=== PATIENT | male | born 1935 | race Caucasian/White ===

== ENCOUNTER 2017-10-11 12:33 | Inpatient (IN) | payer OTHER, MEDICARE ==
[~2017-10-11] VITALS: Ht 185.4 cm; Wt 98.9 kg
--- NOTE | ~2017-10-11 | EKG ---
[address] [address] ELECTROCARDIOGRAM REPORT Name: MELY ARIAS Room #: 170-8 ADM IN M.R.#: [id number] Admission: 10/11/17 Attend Phys: Timothy Ross MD Discharge: Date of : 31 Report #: [id number] THIS REPORT FOR: //name// [facility] ED Test Date: 2017-10-11 Test Time: 13:29:42 Pat Name: MELY ARIAS Department: Room: 170 Gender: M Analyst Competitive Intelligence: MONALISA : 1935 Requested By: Ashanti Weaver Order Number: [id number] MD: Elkin Del Rio Measurements Intervals [place] Rate: 66 P: 12 AL: 225 QRS: 22 QRSD: 113 T: 11 QT: 389 QTc: 408 Interpretive Statements Sinus rhythm Prolonged AL interval Borderline intraventricular conduction delay No previous ECG available for comparison Electronically Signed On 10-11-2017 16:27:51 NUCLEAR ENGINEER by Elkin Del Rio [email or web address] <ELECTRONICALLY SIGNED> By: Elkin Del Rio MD, [facility] 10/11/17 1627 1329 [id number] Elkin Del Rio MD, FACC /EPI
[2017-10-11 13:15] VITALS: BP 95/63
[2017-10-11 13:20] LABS: ABSOLUTE NEUTROPHILS 14.1 thou/uL (1.4-8.2); BASOPHILS 0.3 % (0.0-2.0); EOSINOPHILS 2.4 % (0.0-3.0); HEMOGLOBIN 14.1 gm/dL (14.0-18.0); LYMPHOCYTES 4.5 % (24.0-44.0); MCH 32.1 pg (26.0-34.0); MCHC 33.6 g/dL (28.0-37.0); MCV 95.7 fL (80.0-100.0); PLATELET COUNT 163 thou/uL (150-400); POLYS 86.8 % (36.0-66.0); RBC 4.39 mil/uL (4.50-6.00); RDW 13.4 % (10.5-14.5); WBC 16.3 thou/uL (4.0-11.0)
[2017-10-11 13:32] LABS: CALCIUM 9.6 mg/dL (8.5-10.1); CREATININE 2.1 mg/dL (0.7-1.3); POTASSIUM 4.2 mmol/L (3.5-5.1)
[2017-10-11 13:40] LABS: ALBUMIN 3.1 g/dL (3.4-5.0); TOTAL BILIRUBIN 0.7 mg/dL (<0.1-1.0); TOTAL PROTEIN 6.1 g/dL (6.4-8.2); TROPONIN-I 0.07 ng/mL (<0.06)
[2017-10-11 14:29] LABS: URINE BILIRUBIN 1+ (Negative); URINE BLOOD NEGATIVE (Negative); URINE CLARITY CLEAR; URINE COLOR YELLOW; URINE GLUCOSE-RANDOM* NEGATIVE (Negative); URINE KETONES TRACE (Negative); URINE LEUKOCYTES NEGATIVE (Negative); URINE NITRITE NEGATIVE (Negative); URINE PROTEIN (DIPSTICK) TRACE (Negative); URINE SPECIFIC GRAVITY >= 1.030 (1.005-1.035); URINE UROBILINOGEN 0.2 E.U./dl (0.2-1.0)
[2017-10-11 14:34] LABS: ICTOTEST (BILI CONFIRMATORY) Negative (Negative)
[2017-10-11 17:04] VITALS: BP 101/63
[2017-10-11 18:02] VITALS: BP 105/52
[2017-10-11] MEDS ORDERED: UNICOMPLEX M TA1 TA1 PO (18:19)
[2017-10-11] MEDS ORDERED: PAROEX473 ML PO (18:24)
[2017-10-11 18:30] VITALS: BP 116/67
[2017-10-12 03:06] VITALS: BP 128/55
[2017-10-12 04:29] LABS: HEMATOCRIT 38.2 % (42.0-52.0); MCH 32.2 pg (26.0-34.0); MCV 94.8 fL (80.0-100.0); RBC 4.03 mil/uL (4.50-6.00); RDW 13.2 % (10.5-14.5); WBC 11.4 thou/uL (4.0-11.0)
[2017-10-12 04:39] LABS: CALCIUM 8.8 mg/dL (8.5-10.1); CREATININE 1.6 mg/dL (0.7-1.3); POTASSIUM 3.7 mmol/L (3.5-5.1)
[2017-10-12 07:30] VITALS: BP 120/62
[2017-10-12 15:52] VITALS: BP 138/56
[2017-10-12 19:27] VITALS: BP 139/74
[2017-10-13 04:06] LABS: ABSOLUTE NEUTROPHILS 4.9 thou/uL (1.4-8.2); BASOPHILS 0.4 % (0.0-2.0); EOSINOPHILS 6.9 % (0.0-3.0); HEMATOCRIT 37.4 % (42.0-52.0); HEMOGLOBIN 12.8 gm/dL (14.0-18.0); LYMPHOCYTES 19.3 % (24.0-44.0); MCH 32.1 pg (26.0-34.0); MCHC 34.1 g/dL (28.0-37.0); MCV 94.1 fL (80.0-100.0); MONOCYTES 9.3 % (1.0-8.0); PLATELET COUNT 158 thou/uL (150-400); POLYS 64.1 % (36.0-66.0); RBC 3.97 mil/uL (4.50-6.00); RDW 13.1 % (10.5-14.5); WBC 7.6 thou/uL (4.0-11.0)
[2017-10-13 04:15] LABS: CALCIUM 9.1 mg/dL (8.5-10.1); CREATININE 1.4 mg/dL (0.7-1.3); POTASSIUM 3.9 mmol/L (3.5-5.1)
[2017-10-13 04:38] VITALS: BP 132/72
[2017-10-13 08:00] VITALS: BP 119/65
[2017-10-13 16:00] VITALS: BP 131/71
[2017-10-13 19:49] VITALS: BP 135/77
[2017-10-14 05:29] LABS: CALCIUM 9.7 mg/dL (8.5-10.1); CREATININE 1.3 mg/dL (0.7-1.3)
[2017-10-14] MEDS ORDERED: AZITHROMYCIN 2250 MG PO (12:16)
[2017-10-14] MEDS ORDERED: CEFUROXIME500 MG PO (12:16)
[2017-10-14 12:43] VITALS: BP 135/77
== END 2017-10-14 15:48 | disposition home or self-care (01) | DRG 871 ==
LOC: ER 12:33 → 4E 14:49 → EROBS 14:49 → 4E 18:01 → ENTRNSPT 10-14 15:03 → EDTRNSPTSTS 10-14 15:06 → 4E 10-14 15:48
PROVIDERS: Hospitalist; Internal Medicine; Nurse Practitioner Family
DX: A41.9 Sepsis, unspecified organism (principal); N17.0 Acute kidney failure with tubular necrosis; G93.41 Metabolic encephalopathy; J18.1 Lobar pneumonia, unspecified organism; Z90.49 Acquired absence of other specified parts of digestive tract; Z79.899 Other long term (current) drug therapy; Z88.1 Allergy status to other antibiotic agents; Z86.718 Personal history of other venous thrombosis and embolism
CPT/HCPCS: 10084

== ENCOUNTER → 2017-10-22 | Outpatient (CLI) | payer OTHER, MEDICARE ==
[~2017-10-22] VITALS: Ht 182.9 cm; Wt 92.5 kg
[~2017-10-22] MED LIST: AZITHROMYCIN 2250 MG PO; CEFUROXIME500 MG PO; PAROEX473 ML PO; UNICOMPLEX M TA1 TA1 PO
[2017-10-22 13:41] VITALS: BP 148/85
[2017-10-25 12:34] LABS: ABSOLUTE NEUTROPHILS 4.3 thou/uL (1.4-8.2); BASOPHILS 0.8 % (0.0-2.0); EOSINOPHILS 1.2 % (0.0-3.0); HEMATOCRIT 44.4 % (42.0-52.0); HEMOGLOBIN 14.9 gm/dL (14.0-18.0); LYMPHOCYTES 29.1 % (24.0-44.0); MCHC 33.6 g/dL (28.0-37.0); MONOCYTES 7.1 % (1.0-8.0); PLATELET COUNT 294 thou/uL (150-400); POLYS 61.8 % (36.0-66.0); RBC 4.67 mil/uL (4.50-6.00); RDW 13.1 % (10.5-14.5); WBC 6.9 thou/uL (4.0-11.0)
[2017-10-25 12:55] LABS: ALBUMIN 3.5 g/dL (3.4-5.0); ANION GAP 11 mmol/L (7-16); BUN 26 mg/dL (7-18); CALCIUM 10.1 mg/dL (8.5-10.1); CHLORIDE 107 mmol/L (98-107); CHOLESTEROL 167 mg/dL (<200); CO2 22 mmol/L (21-32); CREATININE 1.4 mg/dL (0.7-1.3); GLUCOSE 82 mg/dL (74-106); HDL CHOLESTEROL 41 mg/dL (>40); LDL CHOLESTEROL 100 mg/dL (<100); MAGNESIUM 2.2 mg/dL (1.8-2.4); POTASSIUM 4.3 mmol/L (3.5-5.1); SGOT 22 U/L (15-37); SGPT 29 U/L (30-65); SODIUM 140 mmol/L (136-145); TC:HDL 4.1 Ratio (Not establshd); TOTAL BILIRUBIN 0.9 mg/dL (<0.1-1.0); TOTAL PROTEIN 6.9 g/dL (6.4-8.2); TRIGLYCERIDE 130 mg/dL (<150); VLDL 26 mg/dL (<40)
[2017-10-25 13:25] LABS: TSH 0.349 uIU/mL (0.358-3.740)
== END ==
LOC: SEN 13:03
PROVIDERS: Registered Nurse
DX: S37.009A Unspecified injury of unspecified kidney, initial encounter (principal); I10 Essential (primary) hypertension; J18.9 Pneumonia, unspecified organism; X58.XXXA Exposure to other specified factors, initial encounter; Y93.89 Activity, other specified; Y92.89 Other specified places as the place of occurrence of the external cause; Y99.8 Other external cause status

== ENCOUNTER → 2017-10-25 | Outpatient (CLI) | payer OTHER, MEDICARE | LOC: RAD 12:33 | DX: R05 Cough (principal) ==

== ENCOUNTER → 2017-10-29 | Outpatient (CLI) | payer OTHER, MEDICARE ==
[~2017-10-29] VITALS: Ht 185.4 cm; Wt 93.4 kg
[2017-10-29 10:13] VITALS: BP 151/83
== END ==
LOC: SEN 09:04
DX: J18.9 Pneumonia, unspecified organism (principal)

== ENCOUNTER 2018-12-22 16:24 | Inpatient (IN) | payer OTHER, MEDICARE ==
[~2018-12-22] VITALS: Ht 185.4 cm; Wt 95.0 kg
[2018-12-22 16:32] VITALS: BP 109/65
[2018-12-22 16:51] LABS: ABSOLUTE NEUTROPHILS 6.4 thou/uL (1.4-8.2); BASOPHILS 0.6 % (0.0-2.0); EOSINOPHILS 8.5 % (0.0-3.0); HEMATOCRIT 41.5 % (42.0-52.0); HEMOGLOBIN 14.2 gm/dL (14.0-18.0); LYMPHOCYTES 15.8 % (24.0-44.0); MCHC 34.3 g/dL (28.0-37.0); MCV 93.3 fL (80.0-100.0); MONOCYTES 10.3 % (1.0-8.0); PLATELET COUNT 217 thou/uL (150-400); POLYS 64.8 % (36.0-66.0); RBC 4.45 mil/uL (4.50-6.00); RDW 12.8 % (10.5-14.5); WBC 9.9 thou/uL (4.0-11.0)
[2018-12-22 16:56] LABS: CALCIUM 10.9 mg/dL (8.5-10.1); CREATININE 1.2 mg/dL (0.7-1.3); POTASSIUM 3.8 mmol/L (3.5-5.1)
[2018-12-22 17:02] LABS: ALBUMIN 3.2 g/dL (3.4-5.0); TOTAL BILIRUBIN 0.8 mg/dL (<0.1-1.0); TOTAL PROTEIN 6.6 g/dL (6.4-8.2)
[2018-12-22 18:27] LABS: URINE BILIRUBIN NEGATIVE (Negative); URINE BLOOD NEGATIVE (Negative); URINE CLARITY CLEAR; URINE COLOR YELLOW; URINE GLUCOSE-RANDOM* NEGATIVE (Negative); URINE KETONES TRACE (Negative); URINE LEUKOCYTES-REFLEX NEGATIVE (Negative); URINE NITRITE-REFLEX NEGATIVE (Negative); URINE PROTEIN (DIPSTICK) NEGATIVE (Negative); URINE SPECIFIC GRAVITY 1.025 (1.005-1.035); URINE UROBILINOGEN 0.2 E.U./dl (0.2-1.0)
[2018-12-22 19:38] LABS: MAGNESIUM 1.9 mg/dL (1.8-2.4); TROPONIN-I <0.06 ng/mL (<0.06)
[2018-12-22 21:59] VITALS: BP 132/63
[2018-12-22 22:16] VITALS: BP 138/67
[2018-12-23 02:49] LABS: ALBUMIN 2.7 g/dL (3.4-5.0); CALCIUM 9.4 mg/dL (8.5-10.1); CREATININE 1.1 mg/dL (0.7-1.3); POTASSIUM 3.6 mmol/L (3.5-5.1); TOTAL BILIRUBIN 0.7 mg/dL (<0.1-1.0); TOTAL PROTEIN 5.6 g/dL (6.4-8.2)
[2018-12-23 02:53] LABS: HEMATOCRIT 37.9 % (42.0-52.0); HEMOGLOBIN 12.8 gm/dL (14.0-18.0); MCH 31.5 pg (26.0-34.0); MCHC 33.8 g/dL (28.0-37.0); MCV 93.4 fL (80.0-100.0); RBC 4.06 mil/uL (4.50-6.00); RDW 13.1 % (10.5-14.5); WBC 8.8 thou/uL (4.0-11.0)
--- NOTE | 2018-12-23 02:53 | NUR ---
PT ARRIVED TO UNIT APPROX 2215 IN STABLE CONDITION, ABLE TO WALK SHORT DISTANCE FROM ER CART TO BED; ADMISSION COMPLETED AND CONSENTS SIGNED WITH HELP OF PT'S SON/DPLEEROY ANAYA. HÉCTOR ASKED THAT IF HE MISSES THE DOCTOR IN THE MORNING, THAT HE BE ABLE TO TALK WITH HIM ON THE PHONE ABOUT THE PLAN OF CARE. ASSESSMENT COMPLETED. PT IS A&O TO SELF, TIME, AND PARTLY TO SITUATION--INITIALLY THOUGHT HE WAS IN [place], BUT AFTER PROMPTING KNEW HE WAS IN THE HOSPITAL SOMEWHERE; HE REPEATEDLY SAID HE WAS IN [place] DURING OTHER QUESTIONS, OFTEN PROVIDING ANSWERS THAT DIDN'T FIT QUESTIONS, AND TRAILING OFF HIS THOUGHTS OR LOSING TRACK OF WHAT HE WAS SAYING. PLEASANT AND COOPERATIVE WITH ASSESSMENT, BUT STRUGGLED WITH ANSWERING QUESTIONS ABOUT PAIN, TROUBLE BREATHING, ETC. DENIED SOB BUT REPORTED BEING EASILY FATIGUED WITH ACTIVITY, LUNG SOUNDS COARSE, USES CPAP AT NOC, DESATS TO 88% OR LOWER ON RA WHILE ASLEEP; EVEN WITH CPAP ON HIS O2 SAT IS AROUND 90%. NO PAIN, REPORTS FEELING MILDLY NAUSEATED BUT DENIES NEED TO THROW UP. HAD TWO TEETH PULLED FIVE DAYS AGO, SON REPORTS HE IS NOT USING STRAWS AND ONLY EATING SOFT FOODS. NO SIGN OF BLEEDING IN HIS MOUTH, BUT HIS TONGUE HAS A WHITE COLOR TO IT. WIDESPREAD RASH ACROSS BODY, PT STATES HE DOES FEEL ITCHY FROM THIS; BLE ARE MORE DENSELY RED AND HOT COMPARED TO THE REST OF THE BODY WITH 1+ PITTING EDEMA WELL. IV FLUIDS STARTED, AND GIVEN WATER AND A CUP OF COFFEE. NO OTHER CONCERNS, WILL CONTINUE TO MONITOR.
[2018-12-23 04:48] VITALS: BP 138/66
[2018-12-23 07:10] VITALS: BP 129/61
--- NOTE | 2018-12-23 09:54 | 2DMMODE ---
[facility] [address] [place] [address] 2 D/M-MODE ECHOCARDIOGRAM Name: MELY ARIAS R[place] Room #: 430-P ADM IN M.R.#: [id number] ������������� Admission: 12/22/18 ������������� Attend Phys: Ko Carr, Discharge: ��� ������������� ��� Date of : 31 Date of Service: 12/23/18 0954 �� Report #: [id number] �������� ��������������������������������������������[id number] THIS REPORT FOR: //name// APPROVED REPORT Study performed: 12/23/2018 08:20:22 EXAM: Comprehensive 2D, Doppler, and color-flow Echocardiogram Patient Location: Echo lab Room #: 430 Status: routine BSA: 2.19 HR: 49 bpm BP: 129/61 mmHg Rhythm: Bradycardia Other Information Study Quality: Good Indications Weakness 2D Dimensions RVDd: 40.20 mm IVSd: 11.11 (7-11mm) LVOT Diam: 24.32 (18-24mm) LVDd: 49.02 mm PWd: 11.31 (7-11mm) Ascending Ao: 43.88 (22-36mm) LVDs: 32.43 (25-40mm) Aortic Root: 37.77 mm IVC: 27.00 mm Volumes Left Atrial Volume (Systole) Single Plane 4CH: 60.01 mL Single Plane 2CH: 77.25 mL LA ESV Index: 34.00 mL/m2 Aortic Valve AoV Peak Maulik.: 1.88 m/s AO Peak Gr.: 14.10 mmHg LVOT Max P.41 mmHg LVOT Max V: 1.05 m/s DENEEN Vmax: 2.60 cm2 Mitral Valve E/A Ratio: 0.8 MV Decel. Time: 270.94 ms MV E Max Maulik.: 0.52 m/s [facility] [place] [address] 2 D/M-MODE ECHOCARDIOGRAM Name: MELY ARIAS [place] Room #: 430-P [facility] IN M.R.#: [id number] ������������� Admission: 12/22/18 ������������� Attend Phys: Ko Carr, Discharge: ��� ������������� ��� Date of : 31 Date of Service: 12/23/18 0954 �� Report #: [id number] �������� ��������������������������������������������[id number] MV A Maulik.: 0.64 m/s MV PHT: 78.57 ms IVRT: 143.02 ms Pulmonary Valve PV Peak Maulik.: 1.09 m/s PV Peak Gr.: 4.81 mmHg Pulmonary Vein P Vein S: 0.55 m/s P Vein A: 0.26 m/s P Vein D: 0.43 m/s P Vein A Dur.: 143.0 msec P Vein S/D Ratio: 1.28 Tricuspid Valve TR Peak Maulik.: 2.55 m/s TR Peak Gr.: 25.99 mmHg PA Pressure: 36.00 mmHg Left Ventricle The left ventricle is normal size. There is normal LV segmental wall motion. There is normal left ventricular wall thickness. The left ventricular systolic function is normal. The left ventricular ejection fraction is within the normal range. LVEF is 55-60%. Grade I - abnormal relaxation pattern. Right Ventricle The right ventricle is normal size. The right ventricular systolic function is normal. Atria Left atrium is at the upper limits of normal. Right atrium is dilated. Aortic Valve The aortic valve is normal in structure. Aortic valve is calcified. Trace aortic regurgitation. There is no aortic valvular stenosis. Mitral Valve The mitral valve is normal in structure. Mild mitral regurgitation. No evidence of mitral valve stenosis. Tricuspid Valve The tricuspid valve is normal in structure. There is trace to mild tricuspid regurgitation. Estimated PAP 36 mmHg. There is mild pulmonary hypertension. [facility] [address] [place] [address] 2 D/M-MODE ECHOCARDIOGRAM Name: MELY ARIAS [place] Room #: 430-P [facility] IN M.R.#: [id number] ������������� Admission: 12/22/18 ������������� Attend Phys: Ko Carr, Discharge: ��� ������������� ��� Date of : 31 Date of Service: 12/23/18 0954 �� Report #: [id number] �������� ��������������������������������������������[id number] Pulmonic Valve The pulmonary valve is normal in structure. Trace pulmonic regurgitation. 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 4.4 centimeters IVC is dilated and collapses <50% with inspiration. Pericardium There is no pericardial effusion. <Conclusion> The left ventricle is normal size. LVEF is 55-60%. Left atrium is at the upper limits of normal. Right atrium is dilated. The aortic valve is normal in structure. Aortic valve is calcified. Trace aortic regurgitation. The mitral valve is normal in structure. Mild mitral regurgitation. The tricuspid valve is normal in structure. There is trace to mild tricuspid regurgitation. Estimated PAP 36 mmHg. There is mild pulmonary hypertension. The pulmonary valve is normal in structure. Trace pulmonic regurgitation. 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 4.4 centimeters There is no pericardial effusion. ��������������������������������������������� <ELECTRONICALLY SIGNED> ���������������������������������������� By: Timothy Patton MD ��������������������������������������������� 12/23/18 0954 0954 Timothy Patton MD /INF
[2018-12-23 11:00] VITALS: BP 125/78
[2018-12-23] MEDS ORDERED: VITAMIN C1000 MG PO (11:28)
[2018-12-23] MEDS ORDERED: VINPOCETINE1 GM (11:30)
[2018-12-23] MEDS ORDERED: VITAMIN K (11:31)
[2018-12-23] MEDS ORDERED: COD LIVER OIL1 EAC4 PO (11:31)
[2018-12-23] MEDS ORDERED: NAC500 MG PO (11:32)
[2018-12-23] MEDS ORDERED: UBIQUINOL100 MG PO (11:33)
[2018-12-23] MEDS ORDERED: VITAMIN D31 ML (11:33)
[2018-12-23] MEDS ORDERED: SUPER B COMPLE1 EAC2 PO (11:34)
[2018-12-23] MEDS ORDERED: PURE TAURINE500 MG PO (11:34)
--- NOTE | 2018-12-23 13:34 | NUR ---
Patient is 83 y/o male, was admitted on 12/22/18, came to ED COMPLAINING OF RASH, WEAKNESS, AND CONFUSION. CT WAS NEGATIVE. ECHO WAS DONE TODAY AROUND 0800. PATIENT IS A LITTLE CONFUSED, BUT VERY PLEASENT AND COAPRATIVE, PATIENT HAS ADEQUATE NUTRISION INTAKE. PATIENT AMBULAT WELL AND TOOK A SHOWER WITH OT HELP. PATIENT IS SCHEDULE TO HAVE MRI DONE TODAY.
--- NOTE | 2018-12-23 13:42 | NUR ---
I have reviewed and concur with student documentation.
--- NOTE | 2018-12-23 14:08 | NUR ---
FAXED REFERRAL TO [facility] SPOKE WITH KATI THEY CAN ACCEPT AT DISCHARGE. FAXED REFERRAL TO [facility] SPOKE WITH ANDI SHE RECEIVED REFERRAL AND CAN ACCEPT. FAXED REFERRAL TO [facility] LEFT MSG WITH BELL IN ADM. TO REVIEW. DCP TO FOLLOW.
--- NOTE | 2018-12-23 14:24 | NUR ---
ASSESSMENT-PT HAD A DENTAL PROCEDURE THEN REACTION TO AMOXICILLIN. PRIOR TO THIS PT HAD BEEN LIVING AT HOME ALONE. HE WALKED ON HIS OWN AND DID HIS OWN ADLS. PT WAS DRIVING. PT DID HIS OWN COOKING, CLEANING AND LAUNDRY. S/W SON HÉCTOR LOCAL COMMUNITY [facility] AND HE IS INTERESTED IN [employer], [employer] AND [employer]. HE WILL PLAN TO TOUR [employer] THIS AFTERNOON. PT'S 2 YRS AGO. PT HAS ANOTHER SON PHANI IN [place]. FOLLOWING TO ASSIST WITH DC PLANNING.
[2018-12-23] MEDS ORDERED: [UNRECOGNIZED DRUG - OTHER] (14:59)
[2018-12-23] MEDS ORDERED: SUPER B COMPLEX (15:00)
[2018-12-23] MEDS ORDERED: PROLINE (15:03)
[2018-12-23] MEDS ORDERED: [UNRECOGNIZED DRUG - CODE] (15:03)
[2018-12-23] MEDS ORDERED: [UNRECOGNIZED DRUG - CODE] (15:04)
[2018-12-23] MEDS ORDERED: [UNRECOGNIZED DRUG - OTHER] (15:05)
[2018-12-23] MEDS ORDERED: NATOKINASE (15:05)
[2018-12-23] MEDS ORDERED: [UNRECOGNIZED DRUG - OTHER] (15:05)
[2018-12-23] MEDS ORDERED: [UNRECOGNIZED DRUG - OTHER] (15:06)
[2018-12-23] MEDS ORDERED: [UNRECOGNIZED DRUG - OTHER] (15:06)
[2018-12-23] MEDS ORDERED: [UNRECOGNIZED DRUG - OTHER] (15:08)
[2018-12-23] MEDS ORDERED: MACU GUARD (15:09)
[2018-12-23] MEDS ORDERED: [UNRECOGNIZED DRUG - OTHER] (15:09)
[2018-12-23] MEDS ORDERED: [UNRECOGNIZED DRUG - OTHER] (15:10)
[2018-12-23] MEDS ORDERED: [UNRECOGNIZED DRUG - OTHER] (15:11)
[2018-12-23] MEDS ORDERED: PLANT ENZYMES (15:14)
--- NOTE | 2018-12-23 16:43 | EKG ---
[address] [place] [address] ELECTROCARDIOGRAM REPORT Name: MELY ARIAS Room #: 430-P ADM IN M.R.#: [id number] ������������������ Admission: 12/22/18 ������������������ Attend Phys: Ko Carr DO Discharge: ������������������ Date of : 31 Report #: [id number] ����������������������������������������������������������������� [id number] THIS REPORT FOR: //name// [facility] ED Test Date: 2018-12-22 Test Time: 17:39:23 Pat Name: MELY ARIAS Department: Room: 430 Gender: M Briefcase Sewer: AMIE : 1935 Requested By: Jean Huang Order Number: [id number] MD: Elkin Del Rio Measurements Intervals [place] Rate: 59 P: 7 MT: 230 QRS: 19 QRSD: 118 T: 10 QT: 428 QTc: 424 Interpretive Statements Sinus rhythm Prolonged MT interval Compared to ECG 10/11/2017 13:29:42 No significant change was found Electronically Signed On 12-23-2018 16:43:32 CDT by Elkin Del Rio [email or web address] ��������������������������������������������� <ELECTRONICALLY SIGNED> ���������������������������������������� By: Elkin Del Rio MD, [facility] ��������������������������������������������� 12/23/18 1643 D: [id number] Elkin Del Rio MD, FAC /EPI
--- NOTE | 2018-12-23 17:48 | NUR ---
ASSUMED CARE AT 0700, SHIFT ASSESSMENT DONE, MEDS GIVEN, VSS. DENIES ANY PAIN, NAUSEA, VOMITING. HAD A ECHO DONE THIS AM. SON STOPPED BY THIS AM, INVOLVED WITH CARE, UPDATED ABOUT PLAN OF CARE. WORKED WITH PHYSICAL AND OCCUPATIONAL THERAPHY. ORDER RECEIVED TO TRANSFER [facility] TO [facility]. REPORT GIVEN TO TIM IN [facility]. WILL GO DOWN AFTER DINNER.
[2018-12-23 18:59] VITALS: BP 128/63
--- NOTE | 2018-12-23 19:03 | NUR ---
PATIENT TRANSFERRED TO [facility] FROM 4E ROOM #430 TO ROOM #220. PATIENT SETTLED AND VS TAKEN. HE IS CURRENTLY SITTING UP IN THE CHAIR.
--- NOTE | 2018-12-23 19:33 | NUR ---
ASSUMED CARE, PT SITTING IN THE CHAIR, ASSISTED TO BED FOR SAFETY DUE TO NO CHAIR ALARM, PT ALERT/ORIENTED TO NAME ONLY, NOTED DIFFICULTY FOLLOWING INSTRUCTIONS, DYLAN SLOW BUT STEADY, RASHES TO BACK, TRACE EDEMA TO BLE, SCDS ON, ON ROOM AIR AT THIS TIME, NO SOB NOTED, BED ALARM ON, MONITORED.
--- NOTE | 2018-12-23 19:44 | NUR ---
DR BRYANT INDICATED THAT THE PATIENT'S SON'S CELL PHONE NUMBER WAS TYPED IN WRONG ON THE ADMISSION DATA AND HE ASKED TO CALL AND GET THAT CHANGED. REGISTRATION WAS CALLED BY THIS NURSE AND THE CORRECT NUMBER TO HÉCTOR ARIAS WAS GIVEN.
--- NOTE | 2018-12-24 04:10 | NUR ---
pt alert/oriented to name, not using call light despite , bed alarm on, up with assist, voiding in the toilet, pt is continent, on 2 l per nc, sat 96-98 percent, scds to ble, ivf infusing to left iv access, hourly rounding, monitored.
[2018-12-24 07:16] LABS: ABSOLUTE NEUTROPHILS 4.2 thou/uL (1.4-8.2); BASOPHILS 0.5 % (0.0-2.0); EOSINOPHILS 10.5 % (0.0-3.0); HEMATOCRIT 37.9 % (42.0-52.0); HEMOGLOBIN 12.9 gm/dL (14.0-18.0); LYMPHOCYTES 32.8 % (24.0-44.0); MCH 31.8 pg (26.0-34.0); MCHC 34.1 g/dL (28.0-37.0); MCV 93.2 fL (80.0-100.0); PLATELET COUNT 227 thou/uL (150-400); POLYS 48.2 % (36.0-66.0); RBC 4.06 mil/uL (4.50-6.00); RDW 13.1 % (10.5-14.5); WBC 8.6 thou/uL (4.0-11.0)
[2018-12-24 07:36] LABS: CALCIUM 9.7 mg/dL (8.5-10.1); CREATININE 1.1 mg/dL (0.7-1.3); POTASSIUM 3.8 mmol/L (3.5-5.1)
--- NOTE | 2018-12-24 07:54 | NUR ---
ASSUMED PATIENT AND CARES AT 0715, PATIENT LAYING IN BED SLEEP, NO S/S OF PAIN OR DISCOMFORT, REPORTED A&OX1 SELF ONLY, SCDS TO BLE, FALL PRECAUTIONS IN PLACE, O2 MONITOR WITH O2@2L/NC IN PLACE, REPORTED REFUSAL TO WEAR CPAP, O2 SAT 97% AT THIS TIME, LEFT FOREARM IV INTACT AND PATENT WITH NS@80ML/HR INFUSING, ASSIST X1 WITH WALKER, PERSONAL BELONGINGS AND CALL LIGHT IN REACH, WILL CONTINUE TO MONITOR
[2018-12-24 08:00] VITALS: BP 138/70
--- NOTE | 2018-12-24 12:42 | NUR ---
I AGREE WITH NURSING ASSESSMENT DONE BY ROBERTH/DANIEL.
--- NOTE | 2018-12-24 13:23 | NUR ---
RAJAT reviewed chart and spoke with nursing and attending physician. Pt [facility] from and is progressing towards goals for discharge. Discharge to SNF is anticipated for tomorrow. RAJAT met with pt and son, Greyson, at bedside to provide update and discuss discharge plan. Pt's son toured [facility]. Pt's son states his preference is [facility]. SW explained that discharge is anticipated for tomorrow. Pt's son requests to speak with attending physician for update. Pt's son would like for Dr. Carr to follow pt at [facility]. meeting planner updated [facility], who can accept when ready for discharge. SW notified attending physician of son's request to speak with physician. SW provided Greyson's contact info. RAJAT is following to assist as needed with discharge planning.
--- NOTE | 2018-12-24 13:25 | NUR ---
DISCHARGE PLANNING. ANTICIPATED DISCHARGE FOR TOMORROW. POST ACUTE CARE RECOMMENDED. SON TOURED [facility] AND WAS VERY IMPRESSED WITH THEIR FACILITY. [facility] IS PRIMARY CHOICE. CALL PLACED TO ANDI TO NOTIFY OF ANTICIPATED DISCHARGE FOR TOMORROW. ANDI TO FACILITATE TRANSPORTATE AND PATIENTS ADMISSION TO [facility] OF OP ONCE DISCHARGE ORDERS RECEIVED. UNIT CM/SW AWARE. FOLLOWING TO ASSIST.
[2018-12-24 20:11] VITALS: BP 170/89
--- NOTE | 2018-12-25 04:48 | NUR ---
ASSUMED CARE OF PATIENT AT 1900. VSS. ASSESSMENT COMPLETED AT 2015 AND IS DOCUMENTED. PATIENT CONTINUES TO BE ORIENTED TO SELF ONLY, BUT IS PLEASANTLY CONFUSED. PT HAS CALLED OUT APPROPRIATELY TONIGHT WHEN NEEDING TO GET UP TO TOILET. ASSIST X1 WITH WALKER D/T OCCASIONAL UNSTEADY GAIT. RASH STILL NOTED TO UPPER BODY AND THIGHS. LEFT FA IV PATENT AND SALINE LOCKED. PT WORE 2L VIA NC ALL NIGHT AND MAINTAINED O2 SAT WELL; PT REFUSES TO WEAR CPAP. PT CURRENTLY IN BED ASLEEP IN NO ACUTE DISTRESS. BED ALARMED, LOCKED, AND IN LOWEST POSITION. CALL LIGHT WITHIN REACH. WCTM.
[2018-12-25 08:00] VITALS: BP 137/75
[2018-12-25] MEDS ORDERED: CLEOCIN HCL150 MG PO (08:03)
--- NOTE | 2018-12-25 08:08 | NUR ---
ASSUMED PATIENT AND CARES AT 0715, PATIENT IN BED SLEEP WITH HOB ELEVATED, O2@2L/NC IN PLACE, O2 MONITOR WITH SENSOR TO RIGHT HAND MIDDLE FINGER IN PLACE, NO S/S OF PAIN OR DISCOMFORT, SCDS TO BLE IN PLACE AND FUNCTIONING, FALL PRECAUTIONS IN PLACE, LEFT FOREARM SALINE LOCK INTACT, PERSONAL BELONGINGS AND CALL LIGHT IN REACH, WILL CONTINUE TO MONITOR
--- NOTE | 2018-12-25 10:02 | NUR ---
DISCHARGE NOTE: SW reviewed chart and spoke with nursing. Pt is medically stable for discharge to [facility] today. Discharge orders/summary completed. RAJAT faxed ppwk to [facility] and notified liaison. Wheelchair van transportation scheduled for 1500 per facilty's arrangements. RAJAT left voice message for pt's son, Ruy, to provide update and notify of transportation time. Chart copy ordered. Nursing provided with number to call report. No additional SW needs identified at this time, but is available to assist should needs arise.
--- NOTE | 2018-12-25 14:59 | NUR ---
PATIENT DISCHARGED TO [facility], PHIL AT BEDSIDE AND WILL FOLLOW PATIENT TO FACILITY, LEFT FOREARM SALINE LOCK REMOVED AND GAUZE AND TAPE PLACED, PATIENT RECEIVED ALL MEDS UP TO DISCHARGE INCLUDING ABT, SON PACKED AND TOOK ALL BELONGINGS TO CAR, PATIENT RECEIVED A SHOWER PER SEDIMENTATIONIST AND DRESSED, NURSE CALL REPORT TO [facility] AT [facility], CHART COPY READY TO BE SENT WITH PATIENT, FACILITY VAN SCHEDULED TO [facility] ARCHITECT AT 1500
== END 2018-12-25 15:15 | DRG 91 ==
LOC: ER 16:24 → 4E 20:51 → SICU 20:51 → EROBS 20:51 → 4E 22:02 → ENTRNSPT 12-23 18:24 → SICU 12-23 18:57
PROVIDERS: Emergency Medicine; Nurse Practitioner; ADMIT Internal Medicine Geriatric Medicine
DX: G92 Toxic encephalopathy (principal); E43 Unspecified severe protein-calorie malnutrition; E87.1 Hypo-osmolality and hyponatremia; J01.90 Acute sinusitis, unspecified; E86.0 Dehydration; R21 Rash and other nonspecific skin eruption; R41.0 Disorientation, unspecified; E01.0 Iodine-deficiency related diffuse (endemic) goiter; Z60.2 Problems related to living alone; Z88.1 Allergy status to other antibiotic agents; Z88.8 Allergy status to other drugs, medicaments and biological substances; Z90.49 Acquired absence of other specified parts of digestive tract; Z86.718 Personal history of other venous thrombosis and embolism; Z98.52 Vasectomy status; Z79.82 Long term (current) use of aspirin; Z79.899 Other long term (current) drug therapy; T36.0X5A Adverse effect of penicillins, initial encounter; Y92.9 Unspecified place or not applicable
CPT/HCPCS: 10084; 15002

== ENCOUNTER 2019-02-22 21:59 | Inpatient (IN) | payer OTHER, MEDICARE ==
[~2019-02-22] VITALS: Ht 185.4 cm; Wt 93.8 kg
[~2019-02-22 21:59] MED LIST changes: +CLEOCIN HCL150 MG PO; +COD LIVER OIL1 EAC4 PO; +MACU GUARD; +NAC500 MG PO; +NATOKINASE; +PLANT ENZYMES; +PROLINE; +PURE TAURINE500 MG PO; +SUPER B COMPLE1 EAC2 PO; +SUPER B COMPLEX; +UBIQUINOL100 MG PO; +VINPOCETINE1 GM; +VITAMIN C1000 MG PO; +VITAMIN D31 ML; +VITAMIN K; +[UNRECOGNIZED DRUG - CODE]; +[UNRECOGNIZED DRUG - CODE]; +[UNRECOGNIZED DRUG - OTHER]; +[UNRECOGNIZED DRUG - OTHER]; +[UNRECOGNIZED DRUG - OTHER]; +[UNRECOGNIZED DRUG - OTHER]; +[UNRECOGNIZED DRUG - OTHER]; +[UNRECOGNIZED DRUG - OTHER]; +[UNRECOGNIZED DRUG - OTHER]; +[UNRECOGNIZED DRUG - OTHER]; +[UNRECOGNIZED DRUG - OTHER]
[2019-02-22 22:05] VITALS: BP 125/89
[2019-02-23] VITALS (7 sets, daily range): BP systolic 113–167; BP diastolic 68–84
--- NOTE | 2019-02-23 03:35 | NUR ---
ADMITTED FROM ER UNDER 'S CARE. SEEN BY MISTY, TRANSIT MIX OPERATOR FOR NAI AT [facility]. SON AT BEDSIDE UPON ADMISSION. ADMIITED WITH L KNEE PAIN UNABLE TO AMBULATE. RECENT CATARACT SUGERY. EYE PATCH APPLIED TO L EYE AND EYE DROPS WILL BE SENT TO PHARMACY FOR NON FORMULARY USE. IV OPENED ON R FA 20G. TOLERATED WELL. PT IS AXOX4. NO S/S ACUTE DISTRESS NOTED OR REPORTED AT THIS TIME. WILL CONT TO MONITOR FOR ANY CHANGES IN CONDITION.
[2019-02-23 05:21] LABS: HEMATOCRIT 39.8 % (42.0-52.0); HEMOGLOBIN 13.5 gm/dL (14.0-18.0); MCH 32.3 pg (26.0-34.0); MCHC 33.9 g/dL (28.0-37.0); MCV 95.5 fL (80.0-100.0); RBC 4.17 mil/uL (4.50-6.00); RDW 13.7 % (10.5-14.5); WBC 8.3 thou/uL (4.0-11.0)
[2019-02-23 05:39] LABS: CALCIUM 9.7 mg/dL (8.5-10.1); CREATININE 1.2 mg/dL (0.7-1.3); POTASSIUM 3.6 mmol/L (3.5-5.1)
--- NOTE | 2019-02-23 15:56 | NUR ---
PT ADMITTED RELATED TO L KNEE PAIN,UNABLE TO AMBULATE. CM REVIEWED CHART AND SPOKE WITH CARE TEAM. CM MET WITH PT AND SON/DPOA AT BEDSIDE THIS DAY. PT IS A&O X4. CM ROLE INTRODUCED. THEY INDICATED PT HAD BEEN AT [facility] IN THE PAST AND HAD RETURNED HOME THREE WEEKS AGO. THEY INDICATED PT RESIDES IN A HOUSE ALONE WITH 3 STEPS TO ENTER THROUGH GARAGE AND 2 [address] FRONT OF HOUSE. PT HAD BEEN INDEPENDENT WITH GAIT AND ADLS STRUCTURAL IRON ERECTOR. PT AND SON ASKED THAT REFERRAL BE SENT TO [facility] FOR REVIEW FOR POSSIBLE ADMISSION. CM TO FOLLOW INDICATED WITH DC PLANNING.
--- NOTE | 2019-02-23 17:15 | NUR ---
Assumed pt care this am, Pt is unable to ambulate due to left knee pain. went down for MRI. Left eye had recent surgery eye drops given POC followed. Pain cream applied to left knee. No signs or distress or discomfornt has been noted nor verbalized. Son came to visit, spoke to CM for arrangements and schedule set for ortho OP scheduled.
[2019-02-24 03:35] VITALS: BP 125/74
--- NOTE | 2019-02-24 07:22 | NUR ---
Assumed care at 1845. Pt resting in bed. AOX4. VSS. Applied scheduled diclofenac gel to L Knee. Pt states pain is tolerable. Pt has been using the urinal. Hasnt left the bed yet. No identified needs at the moment. Will continue to monitor.
[2019-02-24 08:06] VITALS: BP 133/83
[2019-02-24] MEDS ORDERED: VOLTAREN GEL 1100 G1 TOP (11:08)
[2019-02-24] MEDS ORDERED: ACETAMINOPHEN325 M1 PO (11:08)
--- NOTE | 2019-02-24 13:32 | NUR ---
dp faxing dc papers to [facility], pickup time for dc today is 3pm, wc van no oxygen, family has been called.
[2019-02-24 15:17] VITALS: BP 170/91
--- NOTE | 2019-02-24 15:43 | NUR ---
CM HAD ARRANGED DC FOR PT TO [facility] THIS DAY. [facility] CALLED AND INDICATED THAT PT NEED TO STAY FOR THREE MIDNIGHTS HE WAS JUST OUTSIDE OF HIS 30 DAY WINDOW. SOONEST PT CAN DC SKILLED IS Saturday02/26/19. CM NOTIFED SON, UNIT, AND PHYSICAIN. CM TO FOLLOW INDICATED WITH DC PLANNING.
--- NOTE | 2019-02-24 20:20 | NUR ---
ASSUMED CARE OF PATIENT AT 0715, PATIENT ALERT AND ORIENTED X 4. PATIENT UP WITH ASSISST X 1 WITH GAIT BELT AND WALKER TO BATHROOM. PATIENT VOIDED X 2 THIS SHIFT/NO BM. PATIENT HAS RIGHT WRIST IV IN PLACE, FLUSHED WITH NS AND REMAINS PATENT. PATIENT DENIES PAIN, HAS SOME DISCOMFORT WITH LEFT KNEE/DICLOFENAC CREAM APPLIED EVERY 6 HOURS SCHEDULED. PATIENT HAS EYE DROPS SCHEDULED TID TO LEFT EYE, HOME MEDS. PATIENT WAS DISCHARGING TO [facility], BUT WILL NOT DISCHARGE UNTIL SATURDAY DUE TO INSURANCE COVERAGE. WILL CONTINUE TO MONITOR.
[2019-02-24 20:36] VITALS: BP 142/79
--- NOTE | 2019-02-25 01:29 | NUR ---
Assumed care at 1845. Pt resting in bed. AOX4. VSS. Pt states left knee pain feels better. Up with X1 assist to bathroom. Has been using urinal for the most part. Wears eye patch at night due to recent cataract surgery. Call light within reach. Bed in lowest position. Will continue to monitor.
[2019-02-25 05:20] VITALS: BP 119/63
[2019-02-25 07:31] VITALS: BP 138/77
[2019-02-25 14:52] VITALS: BP 153/88
--- NOTE | 2019-02-25 18:02 | NUR ---
PT STABLE THROUGHOUT SHIFT. PT WORKED WELL WITH OT, WAS ABLE TO SHOWER. ANTICIPATE DISCHARGE TOMORROW TO FACILITY. FALL PRECAUTIONS IN PLACE ,FAMILY IN TO VISIT, PT RESTING COMFORTABLY.
[2019-02-25 19:26] VITALS: BP 138/76
--- NOTE | 2019-02-26 04:06 | NUR ---
progress pt a/o x4 but gets confused at times although is easily reoriented. up with sba gb for safety, and a walker. Ambulated to bathroom without difficulty. skin c/d/ has an abrasion to left knee from his fall but scabbed over and has no s/s of infection. Lungs clear on room air. vss. left knee still swollen but pt reports it is improving. plan is to transfer to [place] today.
[2019-02-26 07:52] VITALS: BP 122/78
--- NOTE | 2019-02-26 10:39 | NUR ---
DISCHARGE PLANNING. POST ACUTE RECOMMEDED AT DISCHARGE. [facility] IS PATIENTS CHOICE FOR POST ACUTE CARE. UPDATED CLINICAL INFORMATION FAXED TO [facility] ADMISSIONS. ANTICIPATED DISCHARGE THIS AFTERNOON. ANDI AWARE. FOLLOWING TO ASSIST.
--- NOTE | 2019-02-26 16:46 | NUR ---
ASSUMED CARE OF PATIENT AT 0715, PATIENT ALERT AND ORIENTED X 4. UP WITH ASSIST X 1 WITH WALKER TO BATHROOM. PHYSICAL THERAPY AMBULATED PATIENT IN [place] TODAY. PATIENT DENIES PAIN WITH LEFT KNEE, STATES IT FEELS BETTER. PATIENT HAS RIGHT WRIST IV IN PLACE, FLUSHED WITH NS AND REMAINS PATENT. DR MORRISON HERE THIS AM, PATIENT WILL DISCHARGE TO [facility] THIS AFTERNOON FOR SKILLED. PATIENT HAD LARGE BM, AND VOIDS WITHOUT DIFFICULTY. PATIENT CONTINUES WITH EYE DROPS TID TO LEFT EYE. PATIENT ON ROOM AIR, CPAP AT NIGHT, NO C/O SOB. REPORT GIVEN TO MARIA LUISA/NORAH AT [facility]. ALL PERSONAL BELONGINGS SENT WITH THE PATIENT, AND PAPERWORK GIVEN TO TRANSPORT. SON PRESENT ON DISCHARGE. RIGHT WRIST IV REMOVED PRIOR TO DISCHARGE.
== END 2019-02-26 15:58 | DRG 563 ==
LOC: ER 21:59 → EROBS 02-23 00:08 → 4W 02-23 00:08 → EROBS 02-23 00:08 → 4W 02-23 00:19
PROVIDERS: Emergency Medicine; ADMIT Hospitalist
PROC: 2W3RX1Z Immobilization of Left Lower Leg using Splint (ICD-10-PCS; principal; 2019-02-23)
DX: S83.242A Other tear of medial meniscus, current injury, left knee, initial encounter (principal); G47.33 Obstructive sleep apnea (adult) (pediatric); Z60.2 Problems related to living alone; E55.9 Vitamin D deficiency, unspecified; M17.12 Unilateral primary osteoarthritis, left knee; Z86.718 Personal history of other venous thrombosis and embolism; Z90.49 Acquired absence of other specified parts of digestive tract; Z98.52 Vasectomy status; Z88.1 Allergy status to other antibiotic agents; Z88.8 Allergy status to other drugs, medicaments and biological substances; X58.XXXA Exposure to other specified factors, initial encounter; Y93.89 Activity, other specified; Y92.89 Other specified places as the place of occurrence of the external cause; Y99.8 Other external cause status
CPT/HCPCS: 10040

== ENCOUNTER 2019-06-08 13:33 | Inpatient (IN) | payer OTHER, MEDICARE ==
[~2019-06-08] VITALS: Ht 185.4 cm; Wt 90.3 kg
[2019-06-08 13:33] VITALS: BP 146/91
[~2019-06-08 13:33] MED LIST changes: +ACETAMINOPHEN325 M1 PO; +VOLTAREN GEL 1100 G1 TOP
[2019-06-08] MEDS ORDERED: LISINOPRIL10 MG PO (13:41)
[2019-06-08 15:04] LABS: ABSOLUTE NEUTROPHILS 5.8 thou/uL (1.4-8.2); BASOPHILS 0.6 % (0.0-2.0); EOSINOPHILS 2.3 % (0.0-3.0); HEMATOCRIT 46.7 % (42.0-52.0); HEMOGLOBIN 15.4 gm/dL (14.0-18.0); MCH 31.5 pg (26.0-34.0); MCV 95.2 fL (80.0-100.0); PLATELET COUNT 226 thou/uL (150-400); POLYS 61.1 % (36.0-66.0); RBC 4.91 mil/uL (4.50-6.00); RDW 13.9 % (10.5-14.5); WBC 9.5 thou/uL (4.0-11.0)
[2019-06-08 16:09] LABS: ALBUMIN 3.8 g/dL (3.4-5.0); CALCIUM 10.5 mg/dL (8.5-10.1); CREATININE 1.2 mg/dL (0.7-1.3); POTASSIUM 3.5 mmol/L (3.5-5.1); TOTAL BILIRUBIN 1.2 mg/dL (<0.1-1.0)
[2019-06-08 17:15] VITALS: BP 179/94
[2019-06-08 20:45] VITALS: BP 148/83; BP 187/94
[2019-06-08 20:55] VITALS: BP 187/94
[2019-06-08] MEDS ORDERED: VITAMIN D1000 UNI1 PO (21:53)
[2019-06-08] MEDS ORDERED: vinpocetine PO (22:02)
[2019-06-08 22:40] VITALS: BP 154/90
[2019-06-09 02:02] VITALS: BP 124/76
[2019-06-09 04:59] VITALS: BP 128/71
[2019-06-09 07:29] VITALS: BP 133/83
--- NOTE | 2019-06-09 08:20 | NUR ---
Arrived from ER around 2039. Denies any chest pain or discomfort. Tolerating room air well with no respiratory distress. Pt. verbalized , he gets lightheaded when bending down intermittently. Also stated he gets short of breath more in am after taking a shower. Elevated BP upon arrival on the floor 187/94 then rechecked after he rested 154/90. [employer] DEVELOPER notified and home med lisinopril ordered and given to pt. BP has been in the 120's to 130's since. SB with first degree AV blk while sound asleep. Cardiology consult called to answering service. Pt. encouraged to call for assistance. Bed alarm on for safety. Will continue to monitor.
--- NOTE | 2019-06-09 10:49 | NUR ---
INITIAL ASSESSMENT: Pt evaluated for d/c planning needs. Reviewed chart and spoke with nurse and pt's D-I-L. Pt is currently off the unit for testing. Pt was hospitalized at [facility] in February and discharged to [facility]. Pt has since returned home. Pt lives alonein house and was independent with ADL's. Pt was still driving and remains active in the community. Pt as CPAP at home, and uses no other DME. Pt had [facility] in the past. Pt plans on returning home on d/c from hospital. WIll remain available to assist as needed.
--- NOTE | 2019-06-09 13:28 | NUR ---
RETURNED FROM NUCLEAR STRESS TEST AT 1225. NO DYSPNEA NOTED. DAUGHTER AT BEDSIDE.
[2019-06-09 13:55] VITALS: BP 133/83
[2019-06-09 15:22] VITALS: BP 124/81
--- NOTE | 2019-06-09 16:07 | NUR ---
Pt has had diminished breath sounds in lower lobes, and has maintained a breathing pattern in the normal range. He has had no complaints of pain. Pt is planning on going home today and has a dc order in. Divine Deal, Student Nurse.
--- NOTE | 2019-06-09 16:11 | NUR ---
I have reviewed the student'sdocumentation. Patient care note charted under my name as student's function wasn't working. Jillian Smith RN
[2019-06-09 19:35] VITALS: BP 131/82
--- NOTE | 2019-06-09 19:47 | NUR ---
DENIED CHEST PAIN OR DYSPNEA TODAY. DR MONTALVO IN THIS AFTERNOON TO EXPLAIN RESULTS OF STRESS TEST AND RECOMMENDED POC. REASSURANCE GIVEN TO PATIENT AND HIS FAMILY THEY CONTINUE TO WEIGH THEIR OPTIONS.
--- NOTE | 2019-06-10 02:55 | NUR ---
ASSUMED CARE AT START OF SHIFT, DENIES PAIN OR SOA , DISCUSS POSSIBLE CATH IN AM , VERBALIZED UNDERSTANDING BUT WANT TO TALK TO MD IN AM BEFORE MAKING A DECISION. BOLT SAWYER SHOWSSR WITH 1ST DEGREE BLOCK VSS.RESTING WELL THROUGHOUT HOURLY ROUNDS WILL REPORT CHANGES OR ABNORMAL FINDINGS.
[2019-06-10 04:06] VITALS: BP 123/76
[2019-06-10 05:49] LABS: HEMATOCRIT 40.2 % (42.0-52.0); MCH 31.3 pg (26.0-34.0); MCHC 32.9 g/dL (28.0-37.0); MCV 95.2 fL (80.0-100.0); RBC 4.22 mil/uL (4.50-6.00); RDW 13.8 % (10.5-14.5); WBC 7.8 thou/uL (4.0-11.0)
[2019-06-10 06:02] LABS: HEMOGLOBIN 13.2 gm/dL (14.0-18.0)
[2019-06-10 06:13] LABS: CREATININE 1.3 mg/dL (0.7-1.3); POTASSIUM 3.7 mmol/L (3.5-5.1); TROPONIN-I 0.09 ng/mL (<0.06)
[2019-06-10 07:41] VITALS: BP 147/84
--- NOTE | 2019-06-10 07:53 | EKG ---
[address] [address] ELECTROCARDIOGRAM REPORT Name: MELY ARIAS Room #: 358-P ADM IN M.R.#: [id number] Admission: 06/08/19 Attend Phys: Shawn Sanderson MD Discharge: Date of : 31 Report #: [id number] THIS REPORT FOR: //name// [facility] ED Test Date: 2019-06-08 Test Time: 14:55:19 Pat Name: MELY ARIAS Department: Room: 358 Gender: M Heavy Equipment Technician: cw : 1935 Requested By: Greyson Johansen Order Number: [id number] MD: Lamin Rae Measurements Intervals [place] Rate: 66 P: -54 DC: 231 QRS: 59 QRSD: 111 T: -5 QT: 427 QTc: 448 Interpretive Statements Sinus or ectopic atrial rhythm Prolonged DC interval Compared to ECG 12/22/2018 17:39:23 Electronically Signed On 06-10-2019 7:53:08 CDT by Lamin Rae [email or web address] <ELECTRONICALLY SIGNED> By: Lamin Rae MD 06/10/19 0753 D: [id number] Lamin Rae MD /MARY
[2019-06-10 11:18] VITALS: BP 115/73
--- NOTE | 2019-06-10 14:19 | NUR ---
SW reviewed chart and spoke with nursing and attending physician. Cardiac cath was planned for today. However, pt is not wanting to proceed with cardiac cath until he has surgery for his tooth extraction in [place]. SW met with pt at bedside. Pt states his tooth extraction surgery is planned in the next week or so. SW discussed discharge plans. Pt is open to having home health services if needed or even considering short term SNF stay. SW reviewed therapy notes. PT has discharged pt from their service. Pt states he lives alone and he still feels pretty weak. Discharge is anticpated for tomorrow. SW is following to assist as needed with discharge planning.
[2019-06-10] MEDS ORDERED: LIPITOR 20 MG T20 M1 PO (14:24)
[2019-06-10] MEDS ORDERED: ASPIR 8181 MG PO (14:24)
--- NOTE | 2019-06-10 15:05 | NUR ---
PT ALERT AND ORIENTED TIMES FOUR VSS, 95%RA, SR ON TELE. PT DENIES PAIN/SOA. PT TOLERATES MEDS AND MEALS. PT UP WITH STANDBY ASSIST. PT PROGRESSING TOWRADS POC GOALS.
[2019-06-10 16:25] VITALS: BP 133/83
[2019-06-10 19:51] VITALS: BP 125/75
[2019-06-11 03:14] VITALS: BP 125/71
--- NOTE | 2019-06-11 03:50 | NUR ---
patient is alert and oriented. patient is sba. patient is refusing cath at this time. provider made some medication changes and patient is currently pending discharge. patient is 1degree avb to nsr on tele. patient lbm was the . patient is on room air. patient is resting comfortably in bed. wcm. patient is progressing to goals.
[2019-06-11 07:20] VITALS: BP 129/77
[2019-06-11 11:17] VITALS: BP 119/77
[2019-06-11 12:59] VITALS: BP 119/77
[2019-06-11 13:04] VITALS: BP 119/77
--- NOTE | 2019-06-11 13:29 | NUR ---
DISCHARGE NOTE: SW reviewed chart and spoke with nursing and attending physician. Pt is medically stable for discharge home today. Pt will have tooth extraction before additional outpatient cardiac workup. Pt states he will coordinate his own outpatient plans. Pt declines HH services or any additional needs. Pt's dtr in law will provide transportation home later today. RAJAT updated nursing. No additional SW needs identified at this time, but is available to assist should needs arise.
--- NOTE | 2019-06-11 14:23 | NUR ---
Assumed care approx. 0700 this AM. Patient stated to have no chest pain, SOA, or dizziness. Discharge orders given. Patient administered scripts, discharge packet, and script information; education administered. Patient signed medicare rights sheet. All 3 peripheral IVs dc'd and tele monitor taken off. Patient left by wheelchair with volunteer transport approx. 1425.
[2019-06-11 14:29] VITALS: BP 119/77
== END 2019-06-11 14:36 | disposition home or self-care (01) | DRG 311 ==
LOC: ER 13:33 → EROBS 17:35 → 3W 17:35 → ENTRNSPT 06-11 14:10 → EDTRNSPTSTS 06-11 14:12 → 3W 06-11 14:36
PROVIDERS: Emergency Medicine; ADMIT Internal Medicine
DX: I20.0 Unstable angina (principal); R53.1 Weakness; M19.90 Unspecified osteoarthritis, unspecified site; I10 Essential (primary) hypertension; Z60.2 Problems related to living alone; E83.52 Hypercalcemia; Z86.718 Personal history of other venous thrombosis and embolism; Z98.52 Vasectomy status; Z90.49 Acquired absence of other specified parts of digestive tract; Z88.1 Allergy status to other antibiotic agents; Z88.8 Allergy status to other drugs, medicaments and biological substances; Z87.891 Personal history of nicotine dependence; Z79.82 Long term (current) use of aspirin; Z79.899 Other long term (current) drug therapy; Z91.14 Patient's other noncompliance with medication regimen
CPT/HCPCS: 10879

== ENCOUNTER 2020-03-16 19:19 | Inpatient (IN) | payer OTHER, MEDICARE ==
[~2020-03-16] VITALS: Ht 188 cm; Wt 93.0 kg
[~2020-03-16 19:19] MED LIST changes: +ASPIR 8181 MG PO; +LIPITOR 20 MG T20 M1 PO; +LISINOPRIL10 MG PO; +VITAMIN D1000 UNI1 PO; +vinpocetine PO
[2020-03-16 19:36] VITALS: BP 165/87
[2020-03-16 20:42] LABS: ABSOLUTE NEUTROPHILS 6.2 thou/uL (1.4-8.2); BASOPHILS 0.7 % (0.0-2.0); EOSINOPHILS 3.1 % (0.0-3.0); HEMATOCRIT 45.4 % (42.0-52.0); HEMOGLOBIN 15.2 gm/dL (14.0-18.0); LYMPHOCYTES 30.1 % (24.0-44.0); MCH 32.9 pg (26.0-34.0); MCHC 33.5 g/dL (28.0-37.0); MONOCYTES 6.4 % (1.0-8.0); PLATELET COUNT 223 thou/uL (150-400); POLYS 59.7 % (36.0-66.0); RBC 4.63 mil/uL (4.50-6.00); RDW 13.2 % (10.5-14.5); WBC 10.4 thou/uL (4.0-11.0)
[2020-03-16 20:43] LABS: URINE BILIRUBIN NEGATIVE (Negative); URINE BLOOD NEGATIVE (Negative); URINE CLARITY CLEAR; URINE COLOR YELLOW; URINE GLUCOSE-RANDOM* NEGATIVE (Negative); URINE KETONES TRACE (Negative); URINE LEUKOCYTES-REFLEX NEGATIVE (Negative); URINE NITRITE-REFLEX NEGATIVE (Negative); URINE PROTEIN (DIPSTICK) NEGATIVE (Negative); URINE UROBILINOGEN 0.2 E.U./dl (0.2-1.0)
[2020-03-16 20:50] LABS: ANION GAP 13 mmol/L (7-16); BUN 18 mg/dL (7-18); CALCIUM 9.1 mg/dL (8.5-10.1); CHLORIDE 107 mmol/L (98-107); CO2 18 mmol/L (21-32); CREATININE 1.2 mg/dL (0.7-1.3); GLUCOSE 100 mg/dL (74-106); POTASSIUM 3.4 mmol/L (3.5-5.1); SODIUM 138 mmol/L (136-145)
[2020-03-16 20:52] LABS: AMP/METHAMP Negative (Negative); BARBITURATES Negative (Negative); BENZODIAZEPINES Negative (Negative); COCAINE Negative (Negative); METHADONE Negative (Negative); OPIATES Negative (Negative); PCP Negative (Negative)
[2020-03-16 21:01] LABS: ALBUMIN 3.3 g/dL (3.4-5.0); SGOT 24 U/L (15-37); SGPT 24 U/L (30-65); TOTAL BILIRUBIN 0.4 mg/dL (0.2-1.0); TOTAL PROTEIN 6.4 g/dL (6.4-8.2); TROPONIN-I <0.06 ng/mL (<0.06)
[2020-03-16 23:20] VITALS: BP 162/87
[2020-03-17 00:39] VITALS: BP 164/91
--- NOTE | 2020-03-17 05:40 | NUR ---
VSS-AFEBRILE. ALERT AND ORIENTED X 4 SINCE ADMISSION TO UNIT. LUNGS CLEAR-ROOM AIR. NO REPORTED PAIN. OOB WITH SBA TO USE RESTROOM, CALLS APPROPRIATELY FOR ANY NEEDED ASSISTANCE. FALL PRECAUTIONS IN PLACE.
[2020-03-17 06:43] LABS: ANION GAP 11 mmol/L (7-16); BUN 16 mg/dL (7-18); CALCIUM 9.9 mg/dL (8.5-10.1); CHLORIDE 106 mmol/L (98-107); CHOLESTEROL 161 mg/dL (<200); CO2 20 mmol/L (21-32); CREATININE 1.1 mg/dL (0.7-1.3); GLUCOSE 92 mg/dL (74-106); HDL CHOLESTEROL 31 mg/dL (>40); LDL CHOLESTEROL 107 mg/dL (<100); SODIUM 137 mmol/L (136-145); TC:HDL 5.2 Ratio (Not establshd); TRIGLYCERIDE 116 mg/dL (<150); VLDL 23 mg/dL (<40)
--- NOTE | 2020-03-17 09:03 | EKG ---
[facility] [place] [address] ELECTROCARDIOGRAM REPORT Name: MELY ARIAS Room #: 449-I ADM IN M.R.#: [id number] Admission: 03/16/20 Attend Phys: Shawn Sanderson MD Discharge: Date of : 31 Report #: [id number] THIS REPORT FOR: cc: Gibson Babcock MD, Steven E. 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[facility] : 1935 Requested By: Ghazala Carcamo Order Number: [id number] MD: Elkin Del Rio Measurements Intervals [place] Rate: 60 P: -4 FL: 244 QRS: 30 QRSD: 114 T: -6 QT: 445 QTc: 445 Interpretive Statements Sinus rhythm Prolonged FL interval Borderline T abnormalities, inferior leads Baseline wander in lead(s) V3 Compared to ECG 06/08/2019 14:55:19 No significant change was found Electronically Signed On 03-17-2020 9:02:48 CDT by Elkin Del iRo [email or web address] <ELECTRONICALLY SIGNED> By: Elkin Del Rio MD, FAC 03/17/20901 58 58 Elkin Del Rio MD, FAC /EPI
[2020-03-17 09:32] VITALS: BP 163/89
[2020-03-17 14:22] VITALS: BP 145/85
--- NOTE | 2020-03-17 14:50 | NUR ---
PT ADMITTED RELATED TO AMS. CM REVIEWED CHART AND SPOKE WITH CARE TEAM. CM ATTEMPTED PC TO PT'S ROOM WIHT NO ANSWER. CM CALLED AND SPOKE WITH PT'S SON LENA ANAYA. HE INDICATED THAT PT RESIDES ALONE IN A HOUSE WITH 1 STEP TO ENTER AND NONE INSIDE THAT HE USED. 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 HE INDICATED THAT PT MIGHT HAVE A FWW IN A CLOSET. PT HAD HOME CPAP. PT HAD BEEN TO BOP IN PAST AND USED [employer] WELL. PT ASSESSED PT AND DISCHARGED INDICATING NO DEFICITS. OT TO STILL SEE. ST TO DO SWALLOW EVAL TOMORROW. 5N CONSULTED SON INDICATED IF PT IS FOUND TO BE APPROPRIATE FOR 5N HE MIGHT NEED SOME CONFINCING TO GO BUT THEY WOULD LIKELY BE RECPTIVE IF IT'S NEEDED. OTHERWISE THEY WOULD BE RECEPTIVE TO HOME WITH [employer]. SHOULD PT BE MEDICALLY STABLE TO DC HOME TOMORROW OR OVER THE WEEKEND AND NEED HH SERVICES CALL FAX ORDERS TO .
[2020-03-17 18:25] LABS: TSH 0.285 uIU/mL (0.358-3.740)
[2020-03-17 19:01] VITALS: BP 133/76
--- NOTE | 2020-03-17 19:46 | NUR ---
ASSUMED CARE AROUND 0700, PT A&O X 4, NO ACUTE DISTRESS NOTED. VSS, O2 ON RA. PT ON TELE NSR. PT DENIED ANY PAIN OR DISCOMFORT, CALLS APPROPIATELY BEFORE GETTING UP. PT HAD US CAROTID AND MRI HEAD RESULTS DOCUMENTED. IV TO RH INFUSING NS AT 75ML/H. ABX FOR EYE STARTED TODAY. PENDING MRI AND EEG PROCEDURES. PT CONTINENT OF B&B, USES URINAL/BR. PT RESTING IN BED, CALL LIGHT WITHIN REACH, WILL CONTINUE TO MONITOR PER POC.
[2020-03-18 01:06] LABS: GLYCOHEMOGLOBIN (HGB A1C) 5.4 % (4.8-5.6)
[2020-03-18 07:32] VITALS: BP 154/76
[2020-03-18] MEDS ORDERED: ASA81BEC PO (10:43)
[2020-03-18 12:15] VITALS: BP 154/76
[2020-03-18 13:00] VITALS: BP 119/69; BP 157/84; BP 173/83
--- NOTE | 2020-03-18 14:39 | NUR ---
Assumed pt care at 7am.Assessment completed.vss.Pt up adlib in the room independently.Dr Sanderson here,order noted.Eeg conpleted and reviewed by neurologist.Ortho pb done and charted in computer as ordered by Neurologist. Dc summary completed and reviewed with pt.Saline lock dc'd prior to dc home per wc at 1400 with son.
--- NOTE | 2020-03-24 17:36 | HC ---
[facility] [place] [address] CONSULTATION Name: MELY ARIAS Room #: 449-I [facility] IN M.R.#: [id number] Admission: 03/16/20 Attend Phys: Shawn Sanderson MD Discharge: 03/18/20 Date of : 31 Report #: [id number] THIS REPORT FOR: cc: Gibson Babcock MD,Fredrick Humphrey MD, MD ~ CC: Shawn Babcock DATE OF SERVICE: 03/17/2020 HISTORY OF PRESENT ILLNESS: This 84-year-old male patient who was seen by me for an episode of confusion. The patient provided some history and subsequently I talked to the patient's son and he provided some history. It would appear that the patient could not remember things. He could not do the things which he was able to do before. He was put on erythromycin drops. Patient at one time had similar trouble with amoxicillin. There was no focal deficit noticed during this episode. He was brought to Emergency Room and a CT scan of the head was negative. REVIEW OF SYSTEMS: Indicate that this patient says he is healthy. He feels back to his normal self. His creatinine looks good. He does not believe he has any visual symptoms. He is somewhat hard of hearing. He denies any cardiac, respiratory, GI, , musculoskeletal, constitutional, dermatological, hematological, psychiatric, throat, allergic symptom associated with this present symptomatology. PAST MEDICAL HISTORY: Positive for similar confusion, which happened some time ago. FAMILY HISTORY: Unremarkable. SOCIAL HISTORY: The patient's son is pretty supportive and I talked to him. PHYSICAL EXAMINATION: Indicate that he is alert. He is responsive. He can follow simple and complex command. He is oriented. He can tell me what month it is, who the president is. His cranial nerve examination 2-12 does not appear to be showing any marked problem except some hearing problem. His strength, sensation, reflexes and tone looks symmetrical. There is no cerebellar sign. There is no carotid bruit. I could not look at the patient's fundus. He is a well-developed individual. He does not have any dysmorphic features of eyes, ears and face. His vision looks adequate. His cardiac examination is unremarkable. No respiratory difficulty was noticed. Blood pressure is 145/85, respirations 19, pulse is 61, temperature is 97.8. LABORATORY DATA: His white count is 10.4. He did have an MRI of the brain, [facility] [address] [place] [address] CONSULTATION Name: MELY ARIAS Room #: 449-I [facility] IN M.R.#: [id number] Admission: 03/16/20 Attend Phys: Shawn Sanderson MD Discharge: 03/18/20 Date of : 31 Report #: [id number] which does not show any acute abnormality. His carotid Doppler was also showing some mild problem, but nothing which can explain his symptoms. His lipid profile indicate an LDL of 107. IMPRESSION: An episode of confusion. I am not sure what the etiology is. It is possible it is TIA. Transient global amnesia is also possible, non-convulsive seizure is unlikely, but again cannot be fully excluded. Sometime vasospasm secondary to aneurysm can cause this kind of symptoms, but they are also unlikely. His workup so far is unremarkable and we will do rest of the workup to complete the workup, but it is unlikely to show any pathology, which can explain his symptoms. I discussed with the patient and son and I discussed with him that if his workup is unremarkable, he can be dismissed. I will suggest that the patient take a baby aspirin and statin because of his LDL and see if these episodes happen again. I also discussed with them their other options and they understand it and they want to follow this plan. I will check an EEG and MRA. If they are okay from neurological perspective, he can be dismissed on aspirin and statin. Thank you very much for this referral and if you have any question, please feel free to contact me. <ELECTRONICALLY SIGNED> By: Fredrick Vaughn MD 03/24/20 1736 1715 1823 Fredrick Vaughn MD /nt
== END 2020-03-18 15:00 | disposition home health service (06) | DRG 71 ==
LOC: ER 19:19 → EROBS 22:49 → 4W 22:49
PROVIDERS: Nurse Practitioner Family; Psychiatry & Neurology Neuromuscular Medicine; Student in an Organized Health Care Education/Training Program; ADMIT Internal Medicine; ATTEND Internal Medicine
DX: G93.41 Metabolic encephalopathy (principal); I67.89 Other cerebrovascular disease; I95.89 Other hypotension; I10 Essential (primary) hypertension; G47.00 Insomnia, unspecified; E55.9 Vitamin D deficiency, unspecified; Z88.8 Allergy status to other drugs, medicaments and biological substances; Z86.73 Personal history of transient ischemic attack (TIA), and cerebral infarction without residual deficits; Z88.1 Allergy status to other antibiotic agents; Z86.718 Personal history of other venous thrombosis and embolism; Z98.52 Vasectomy status; G31.9 Degenerative disease of nervous system, unspecified; F02.80 Dementia in other diseases classified elsewhere, unspecified severity, without behavioral disturbance, psychotic disturbance, mood disturbance, and anxiety
CPT/HCPCS: 10045

== ENCOUNTER → 2021-03-06 | Outpatient (CLI) | payer OTHER, MEDICARE ==
[~2021-03-06] MED LIST changes: +ASA81BEC PO
== END ==
LOC: SJCVC 13:36
PROVIDERS: ATTEND Internal Medicine
DX: R94.31 Abnormal electrocardiogram [ECG] [EKG] (principal); I44.0 Atrioventricular block, first degree; I25.10 Atherosclerotic heart disease of native coronary artery without angina pectoris; E78.5 Hyperlipidemia, unspecified; R94.39 Abnormal result of other cardiovascular function study; I10 Essential (primary) hypertension; I65.23 Occlusion and stenosis of bilateral carotid arteries; G47.33 Obstructive sleep apnea (adult) (pediatric); M19.90 Unspecified osteoarthritis, unspecified site; Z86.73 Personal history of transient ischemic attack (TIA), and cerebral infarction without residual deficits; Z95.0 Presence of cardiac pacemaker; Z86.718 Personal history of other venous thrombosis and embolism; Z88.1 Allergy status to other antibiotic agents; Z88.0 Allergy status to penicillin; Z88.8 Allergy status to other drugs, medicaments and biological substances; Z79.82 Long term (current) use of aspirin; Z79.899 Other long term (current) drug therapy